=== PATIENT | male | born 1965 ===

== ENCOUNTER 2020-12-15 23:06 | Emergency (ER) | payer SELFPAY ==
[~2020-12-15] VITALS: Ht 182.9 cm; Wt 91.4 kg
--- NOTE | 2020-12-16 00:22 | NUR ---
pt to room from lobby
--- NOTE | 2020-12-16 00:41 | NUR ---
PT WALKED BACK TO ROOM WITH RN, USED RESTROOM THEN PROCEEDED BACK TO LOBBY STATING "I FORGOT SOMETHING THERE AND I NEED IT" RN TOLD PT SHE WOULD OBTAINED OBJECT, PT VEHEMENTLY REFUSED. PT BACK TO ROOM AT THIS TIME, FALLING ASLEEP ON GURNEY DURING EXAM, PT IS ALSO A POOR HISTORIAN AT THIS TIME. PT NAD, EVEN AND UNLABORED RESPIRATIONS NOTED, VSS, PT REFUSED TO CHANGE INTO GOWN, LOWER EXTREMITIES SWOLLEN AND EDEMATOUS. PT BED IN LOWEST, RAILS ENGAGED, CALL LIGHT ON LAP, WCTM.
[2020-12-16 00:56] LABS: BASOPHILS % (AUTO) 1 % (0-1); EOSINOPHILS % (AUTO) 2 % (1-7); LYMPHOCYTES % (AUTO) 33 % (22-44); MEAN CORPUSCULAR HEMOGLOBIN 32.1 pg (27.5-34.5); MEAN CORPUSCULAR HGB CONC 33.8 g/dL (33.2-36.2); MEAN PLATELET VOLUME 6.6 fL (7.4-10.4); MONOCYTES % (AUTO) 10 % (2-9); NEUTROPHILS % (AUTO) 55 % (42-75); PLATELET COUNT 281 x10^3/uL (130-400); RED BLOOD COUNT 3.96 x10^6/uL (4.38-5.82); RED CELL DISTRIBUTION WIDTH 14.4 % (9.4-14.8)
[2020-12-16 01:02] LABS: ALBUMIN 3.1 g/dL (3.4-5.0); ANION GAP 4 mmol/L (5-15); CALCIUM 8.4 mg/dL (8.5-10.1); CHLORIDE 104 mmol/L (98-107)
[2020-12-16 01:07] LABS: ALANINE AMINOTRANSFERASE 31 U/L (12-78); ALKALINE PHOSPHATASE 55 U/L (45-117); BILIRUBIN,TOTAL 0.6 mg/dL (0.2-1.0); CREATININE 1.41 mg/dL (0.7-1.3); TOTAL PROTEIN 7.6 g/dL (6.4-8.2); TROPONIN I < 0.015 ng/mL (0.000-0.045)
--- NOTE | 2020-12-16 02:05 | NUR ---
Patient is resting comfortably in bed. Bed in lowest, rails engaged, call light on lap. Vital Signs within normal limits. eyes closed, even and unlabored respirations, WCTM.
[2020-12-16 02:58] VITALS: BP 147/96
--- NOTE | 2020-12-16 03:06 | NUR ---
Patient given discharge instructions and they have confirmed that they understand the instructions. Patient ambulatory with steady gait. NAD, all questions answered appropriately, denies additional needs at this time. No personal belongings left in room after discharge.
== END 2020-12-16 03:07 | disposition home or self-care (01) ==
LOC: ED 23:59
DX: R60.0 Localized edema (principal); R06.00 Dyspnea, unspecified; R06.02 Shortness of breath; F17.200 Nicotine dependence, unspecified, uncomplicated
CPT/HCPCS: 36415; 71045; 80053; 83880; 84484; 85025; 93005; 99285